=== PATIENT | male | born 1950 ===

== ENCOUNTER 2019-09-29 14:01 | Inpatient (IN) ==
[2019-09-29 15:39] LABS: Basophils # 0.1 K/mcL (0.0-0.2); Eosinophils # 0.3 K/mcL (0.0-0.6); Eosinophils % 6.3 %; Hematocrit 40.4 % (37.5-50.1); Hemoglobin 12.1 g/dL (12.9-16.9); Immature Granulocytes % 0.6 % (0-4); Lymphocytes # 0.6 K/mcL (0.6-4.6); Lymphocytes % 12.3 %; Mean Corpuscular Hemoglobin 31.2 pg (28.0-33.3); Mean Corpuscular Volume 104.1 fL (83.0-100.0); Mean Platelet Volume 9.5 fL (9.4-12.4); Monocytes # 0.6 K/mcL (0.0-1.3); Neutrophils # 3.6 K/mcL (1.6-8.9); Platelet Count 145 K/mcL (140-400); Red Blood Count 3.88 M/mcL (4.19-5.50); Red Cell Distribution Width 14.5 % (11.5-14.5); Segmented Neutrophils % 68.8 %; White Blood Count 5.2 K/mcL (4.3-11.1)
[2019-09-29 15:49] LABS: VBG HCO3 31 mEq/L (21-27); VBG PCO2 84 mmHg (41-51); VBG PH 7.18 pH Units (7.32-7.42); VBG PO2 50 mmHg (25-50)
[2019-09-29 16:00] LABS: Calcium 8.9 mg/dL (8.6-10.3); Potassium 4.1 mEq/L (3.5-5.1)
[2019-09-29 16:22] LABS: Troponin I 0.07 ng/mL (< 0.04)
[2019-09-29] MEDS ORDERED: Furosemide 40 MG/4 ML VIAL IVP ONE (16:39)
[2019-09-29] MEDS ORDERED: Nitroglycerin 1 INCH/GM PACKET TP ONE (17:11)
[2019-09-29 20:25] LABS: Adenovirus Not Detected (Not Detect); Coronavirus 229E Not Detected (Not Detect); Coronavirus HKU1 Not Detected (Not Detect); Coronavirus NL63 Not Detected (Not Detect); Coronavirus OC43 Not Detected (Not Detect)
[2019-09-29 20:26] LABS: Bordetella Pertussis Not Detected (Not Detect); Chlamydophila pneumoniae Not Detected (Not Detect); Human Metapneumovirus Not Detected (Not Detect); Human Rhinovirus/Enterovirus Not Detected (Not Detect); Influenza A Subtype 2009 H1 Not Detected (Not Detect); Influenza B Not Detected (Not Detect); Mycoplasma pneumoniae Not Detected (Not Detect); Parainfluenza Virus 1 Not Detected (Not Detect); Parainfluenza Virus 2 Not Detected (Not Detect); Parainfluenza Virus 3 Not Detected (Not Detect); Parainfluenza Virus 4 Not Detected (Not Detect); Respiratory Syncytial Virus Not Detected (Not Detect)
[2019-09-29] MEDS ORDERED: *HR* Metoprolol 5 MG/5 ML VIAL IVP PRN (22:11)
[2019-09-29] MEDS ORDERED: Levalbuterol Neb 1.25 MG/3 ML IH PRN (22:14)
[2019-09-29] MEDS: Sennosides/Docusate Sodium TABLET PO PRN (22:32)
[2019-09-29 23:12] LABS: ABG Base Excess 0 mEq/L (-2 to 3); ABG HCO3 27 mEq/L (21-27); ABG Oxygen Saturation 89 % (95-98); ABG PCO2 54 mmHg (35-45); ABG PO2 64 mmHg (85-104); ABG TCO2 28 mEq/L (20-26)
[2019-09-30] MEDS ORDERED: Benzonatate 100 MG CAPSULE PO PRN (05:04)
[2019-09-30 06:17] LABS: Basophils % 0.8 %; Eosinophils # 0.4 K/mcL (0.0-0.6); Eosinophils % 7.5 %; Hemoglobin 11.6 g/dL (12.9-16.9); Immature Granulocytes % 0.4 % (0-4); Lymphocytes # 0.6 K/mcL (0.6-4.6); Lymphocytes % 12.5 %; Mean Corpuscular HGB Conc 29.7 g/dL (31.6-35.5); Mean Corpuscular Hemoglobin 30.9 pg (28.0-33.3); Mean Platelet Volume 9.6 fL (9.4-12.4); Monocytes # 0.5 K/mcL (0.0-1.3); Monocytes % 10.7 %; Neutrophils # 3.4 K/mcL (1.6-8.9); Platelet Count 144 K/mcL (140-400); Red Blood Count 3.75 M/mcL (4.19-5.50); Red Cell Distribution Width 14.3 % (11.5-14.5); Segmented Neutrophils % 68.1 %
[2019-09-30 06:27] LABS: VBG HCO3 26 mEq/L (21-27); VBG PCO2 49 mmHg (41-51); VBG PH 7.34 pH Units (7.32-7.42); VBG PO2 65 mmHg (25-50)
[2019-09-30 06:34] LABS: INR 1.1; Prothrombin Time 12.5 Seconds (9.4-12.1)
[2019-09-30 06:45] LABS: Albumin 3.1 g/dL (3.5-5.7); Albumin/Globulin Ratio 1.3 (1.1-2.2); Bilirubin,Total 0.5 mg/dL (0.3-1.0); Calcium 8.8 mg/dL (8.6-10.3); Globulin 2.3 g/dL (2.4-3.5); Potassium 4.3 mEq/L (3.5-5.1); Total Protein 5.4 g/dL (6.4-8.9); Troponin I 0.07 ng/mL (< 0.04)
[2019-09-30] MEDS ORDERED: 0.9 % Sodium Chloride 250 ML IVC PRN (07:03)
[2019-09-30] MEDS ORDERED: Albumin 25% 25gram/100mL 25 GM/100 ML IV.SOLN IVPB PRN (07:03)
[2019-09-30] MEDS ORDERED: 0.9 % Sodium Chloride 1,000 ML PRIME SCH (07:15)
[2019-09-30] MEDS ORDERED: Isovue-370 500 ML BOTTLE IVP ONE (12:08)
[2019-09-30 12:28] LABS: Hepatitis B Surface Antibody < 3.10 mIU/mL
[2019-09-30 12:39] LABS: Hepatitis B Surface Antigen Nonreactive (Nonreactive)
[2019-10-01 03:27] LABS: Calcium 8.6 mg/dL (8.6-10.3); Potassium 4.6 mEq/L (3.5-5.1)
[2019-10-02] MEDS ORDERED: Melatonin 3 MG TABLET PO ONE (01:03)
[2019-10-02 03:23] LABS: Basophils % 0.8 %; Eosinophils # 0.4 K/mcL (0.0-0.6); Eosinophils % 6.6 %; Hematocrit 35.7 % (37.5-50.1); Hemoglobin 10.6 g/dL (12.9-16.9); Immature Granulocytes % 0.6 % (0-4); Lymphocytes # 0.8 K/mcL (0.6-4.6); Lymphocytes % 14.8 %; Mean Corpuscular HGB Conc 29.7 g/dL (31.6-35.5); Mean Corpuscular Hemoglobin 30.8 pg (28.0-33.3); Mean Corpuscular Volume 103.8 fL (83.0-100.0); Mean Platelet Volume 9.6 fL (9.4-12.4); Monocytes # 0.7 K/mcL (0.0-1.3); Monocytes % 12.9 %; Neutrophils # 3.4 K/mcL (1.6-8.9); Platelet Count 125 K/mcL (140-400); Red Blood Count 3.44 M/mcL (4.19-5.50); Red Cell Distribution Width 14.3 % (11.5-14.5); Segmented Neutrophils % 64.3 %; White Blood Count 5.3 K/mcL (4.3-11.1)
[2019-10-02 03:41] LABS: Albumin 2.8 g/dL (3.5-5.7)
[2019-10-02 03:42] LABS: Calcium 8.5 mg/dL (8.6-10.3); Potassium 4.9 mEq/L (3.5-5.1)
[2019-10-02] MEDS ORDERED: 0.9 % Sodium Chloride 250 ML IVC PRN (07:04)
[2019-10-02] MEDS ORDERED: Albumin 25% 25gram/100mL 25 GM/100 ML IV.SOLN ONE (11:12)
[2019-10-02] MEDS: Albumin 25% 25gram/100mL 25 GM/100 ML IV.SOLN IVPB ONE ×2 (13:26→13:39)
[2019-10-02] MEDS: Sennosides/Docusate Sodium TABLET PO PRN (21:14)
[2019-10-03 11:26] VITALS: BP 105/67
== END 2019-10-03 17:05 | disposition home or self-care (01) | DRG 291 ==
LOC: 2ANU 14:01 → EMEROOARM 14:01 → SUATTDRO 18:39 → 2ANU 21:01
PROVIDERS: ADMIT Internal Medicine; ATTEND Internal Medicine